=== PATIENT | female | born 2000 | race American Indian/Alaskan Native ===

== ENCOUNTER 2022-06-05 22:00 | Emergency (ER) | payer SELFPAY | END 2022-06-06 02:15 | disposition left against medical advice (07) | LOC: ED 22:00 | DX: R51.9 Headache, unspecified (principal); R07.0 Pain in throat; H57.10 Ocular pain, unspecified eye; Z53.21 Procedure and treatment not carried out due to patient leaving prior to being seen by health care provider ==